=== PATIENT | male | born 2000 | race Caucasian/White ===

== ENCOUNTER 2025-03-06 13:09 | Emergency (ER) | payer OTHER ==
[~2025-03-06] VITALS: Ht 200.7 cm; Wt 78.5 kg
[~2025-03-06 13:09] MED LIST: CODACE30 PO; Percocet 5-3251 EACH PO; RXCODACET PO
[2025-03-06 13:34] VITALS: BP 142/73
[2025-03-06] MEDS ORDERED: Lidocaine/Tetracaine/Epinephr 3 ML GEL SYRINGE TOP ONE (14:35)
[2025-03-06] MEDS ORDERED: MONDOXYNE NL100 MG PO (14:52)
== END 2025-03-06 15:27 | disposition home or self-care (01) ==
LOC: ER 13:09
DX: S01.551A Open bite of lip, initial encounter (principal); F17.200 Nicotine dependence, unspecified, uncomplicated; Z88.0 Allergy status to penicillin; Z59.89 Other problems related to housing and economic circumstances; W54.0XXA Bitten by dog, initial encounter
CPT/HCPCS: 40650; 90471; 90715; 99283-25

== ENCOUNTER 2025-03-12 13:50 | Emergency (ER) | payer OTHER ==
[~2025-03-12] VITALS: Ht 203.2 cm; Wt 78.5 kg
[~2025-03-12 13:50] MED LIST changes: +MONDOXYNE NL100 MG PO
[2025-03-12 13:56] VITALS: BP 133/79
== END 2025-03-12 16:10 | disposition home or self-care (01) ==
LOC: ER 13:50
DX: S01.551D Open bite of lip, subsequent encounter (principal); Z48.02 Encounter for removal of sutures; W54.0XXD Bitten by dog, subsequent encounter; Z88.0 Allergy status to penicillin
CPT/HCPCS: 99281

== ENCOUNTER 2025-03-19 16:36 | Emergency (ER) | payer OTHER ==
[~2025-03-19] VITALS: Ht 203.2 cm; Wt 77.1 kg
[2025-03-19 16:52] VITALS: BP 138/80
== END 2025-03-19 16:52 | disposition home or self-care (01) ==
LOC: ER 16:36
DX: Z48.02 Encounter for removal of sutures (principal); Z88.0 Allergy status to penicillin; Z59.89 Other problems related to housing and economic circumstances
CPT/HCPCS: 99281